=== PATIENT | male | born 1960 | race Caucasian/White ===

== ENCOUNTER 2019-11-20 11:19 | Emergency (ER) | payer OTHER ==
[2019-11-20 11:30] VITALS: RESP 20
[2019-11-20] MEDS ORDERED: LIDOCAINE 1% INJ 10MG/ML (20 ML MDV) SQ ONE (11:37)
[2019-11-20] MEDS ORDERED: DIPH,PERTUS(ACELL)TETVAC-LF 0.5 ML VIAL IM ONE (11:37)
--- NOTE | 2019-11-20 12:01 | ED ---
Wound/Laceration HPI - General Chief Complaint: Wound/Laceration Stated Complaint: finger lac Time Seen by Provider: 11/20/19 11:31 Source: patient Mode of arrival: ambulatory Limitations: no limitations - History of Present Illness Initial Comments: Patient is a 59-year-old male presenting to the emergency Department with complaints of a laceration to his left ring finger. Patient states he was on a ladder when the ladder slipped and he got his finger pinched between the ladder and the cement wall. Bleeding is controlled at this time. He denies being on blood thinners. He does not remember his last tetanus vaccine. Patient has no other complaints at this time. - Related Data Previous Rx's Medication Instructions Recorded Cephalexin [Keflex] 500 mg PO BID 5 Days #10 cap 11/20/19 Allergies Allergy/AdvReac Type Severity Reaction Status Date / Time No Known Allergies Allergy Verified 11/20/19 11:30 Review of Systems ROS Statement: Those systems with pertinent positive or pertinent negative responses have been documented in the HPI. ROS Other: All systems not noted in ROS Statement are negative. Past Medical History Past Medical History: Hypertension History of Any Multi-Drug Resistant Organisms: None Reported Past Surgical History: Orthopedic Surgery Additional Past Surgical History / Comment(s): Back, Lmbar. Eye. Past Psychological History: No Psychological Hx Reported Smoking Status: Never smoker Past Alcohol Use History: None Reported Past Drug Use History: None Reported General Exam - General Exam Comments Initial Comments: GENERAL: Well-appearing, well-nourished and in no acute distress. HEAD: Atraumatic, normocephalic. EYES: Pupils equal round and reactive to light, extraocular movements intact, sclera anicteric, conjunctiva are normal. ENT: Moist mucous membranes. NECK: Normal range of motion, supple without lymphadenopathy or JVD. LUNGS: Breath sounds clear to auscultation bilaterally and equal. No wheezes rales or rhonchi. HEART: Regular rate and rhythm without murmurs, rubs or gallops. ABDOMEN: Soft, nontender, normoactive bowel sounds. No guarding, no rebound. No masses appreciated. EXTREMITIES: Patient has full range of motion of the left fingers including left fourth digit. Neurovascular intact. NEUROLOGICAL: Normal speech, normal gait. PSYCH: Normal mood, normal affect. SKIN: Warm, Dry, normal turgor, no rashes. Patient has a 2 cm irregular laceration involving the distal aspect of the fourth digit, mclean aspect. nail is intact. Limitations: no limitations Course Vital Signs 11/20/19 11/20/19 11:28 14:03 Temperature 97.8 F 97.9 F Pulse Rate 83 86 Respiratory 20 20 Rate Blood Pressure 188/99 148/79 O2 Sat by Pulse 99 99 Oximetry Procedures - Laceration Laceration #1 Consent Obtained: verbal consent Indication: laceration Site: hand (left 4th digit) Size (cm): 2 Description: linear, irregular Depth: simple, single layer Anesthetic Used: lidocaine 1% Anesthesia Technique: local infiltration, nerve block Amount (mls): 8 Pre-repair: irrigated extensively Type of Sutures: nylon Size of Sutures: 5-0 Number of Sutures: 8 Technique: simple, interrupted Patient Tolerated Procedure: well Medical Decision Making - Medical Decision Making Patient is a 59-year-old male presenting with a 2 cm irregular laceration to the distal aspect of his left ring finger, palmar aspect. Patient got his finger stuck between a wall and a ladder. Patient has full range of motion. Neuro vascular intact. X-ray reveals an acute, mildly comminuted, nondisplaced distal tuft fracture of the left fourth phalanx. Patient's tetanus vaccine was updated today, antibiotics were given. Patient's wound was irrigated with sterile water, and a closed with 8, 5-0 sutures. Patient tolerated procedure well. Patient's wound was bandaged and splinted. Patient will follow up with orthopedics. Patient will take ibuprofen for pain relief as well as antibiotics. He will have sutures removed in 10-12 days. Patient is agreeable with this plan and care. Patient stable for discharge at this time. Case discussed with Dr. Chase. Disposition Clinical Impression: Laceration of left ring finger, Open fracture of tuft of distal phalanx of finger Disposition: HOME SELF-CARE Condition: Stable Instructions (If sedation given, give patient instructions): Laceration (ED), Finger Fracture (ED) Additional Instructions: Please return to the Emergency Department if symptoms worsen or any other concerns. Take antibiotic as prescribed. Keep finger elevated. Sutures need to be removed in 10-12 days. Follow-up with hand doctor. Prescriptions: Cephalexin [Keflex] 500 mg PO BID 5 Days #10 cap Is patient prescribed a controlled substance at d/c from ED?: No Referrals: None,Stated [Primary Care Provider] - 1-2 days Rustam Figueroa PAC [[employer]] - 1-2 days
--- NOTE | 2019-11-20 12:29 | XR ---
EXAMINATION TYPE: XR hand limited LT DATE OF EXAM: 11/20/2019 CLINICAL HISTORY: Crush injury of the fourth digit of the left hand with subsequent pain. Overlying g auze on radiograph. TECHNIQUE: Frontal and lateral images of the left hand are obtained. COMPARISON: None. FINDINGS: Nondisplaced, mildly comminuted fracture of the distal tuft of the fourth phalanx of the le ft hand. Evaluation for foreign body is limited by overlying gauze. No dislocation of the left hand. Very mild degenerative change as very small osteophytes of the distal interphalangeal joints and join t space narrowing. IMPRESSION: Acute, mildly comminuted, overall nondisplaced distal tuft fracture of the left fourth ph alanx. Evaluation for foreign body is limited given overlying gauze.
[2019-11-20] MEDS ORDERED: CEPHALEXIN 500 MG CAP PO STA (12:44)
[2019-11-20] MEDS ORDERED: KETOROLAC 60 MG/2 ML VIAL IM STA (12:54)
[2019-11-20 14:04] VITALS: BP 148/79; PULSE 86; TEMP 97.9
== END 2019-11-20 13:54 | disposition home or self-care (01) ==
LOC: EC 11:19
DX: S62.635B Displaced fracture of distal phalanx of left ring finger, initial encounter for open fracture (principal); S61.215A Laceration without foreign body of left ring finger without damage to nail, initial encounter; Z23 Encounter for immunization; I10 Essential (primary) hypertension; W23.0XXA Caught, crushed, jammed, or pinched between moving objects, initial encounter
CPT/HCPCS: 73120; 90715; 99283; 12001; 90471; 96372; J2001; J1885